=== PATIENT | male | born 1940 | race Caucasian/White ===

== ENCOUNTER → 2019-01-12 | Outpatient (RCR) | payer MEDICARE, OTHER ==
[~2019-01-12] MED LIST: ASPIRIN E.C. 8181 MG PO; BROVANA15 MCG/2 M IH; DEPAKOTE 250MG250 MG PO; FIORICET 325 MG1 TA1 PO; FLAXSEED OIL1 CAP PO; GLUCOPHAGE500 MG/TAB PO; MAREPA1200 MG PO; MULTIPLE VITAMI1 CAP PO; PLENDIL 5MG TAB5 MG PO; POTASSIUM99 MG PO; RT ADVAIR 228 DISKUS IH; SINGULAIR 110 MG/TAB PO; TRIAMCINOLONE0.11 TP; TYLENOL 650MG650 M2 PO; VENTOLIN0.09 MG IH; VITAMIN B COMPL1 T16 PO; VITAMIN C PUR1000 MG PO; VITAMIN D1000 IU PO; ZYRTEC 10MG10 MG PO
== END | disposition home or self-care (01) ==
LOC: WSPT → WSC 10-14 08:03 → WSPT 10-14 08:15 → WSC 10-23 09:45 → WSPT 10-28 14:15 → WSC 12-01 15:30 → WSPT 12-18 08:30
DX: M35.3 Polymyalgia rheumatica (principal)
CPT/HCPCS: G8978-GP; G8979-GP